=== PATIENT | male | born 1970 | race Caucasian/White ===

== ENCOUNTER → 2023-12-05 | Outpatient (CLI) | payer OTHER | END | disposition home or self-care (01) | LOC: RADMN 09:34 | PROVIDERS: ATTEND Family Medicine | DX: Z12.2 Encounter for screening for malignant neoplasm of respiratory organs (principal); R91.8 Other nonspecific abnormal finding of lung field; J98.4 Other disorders of lung; M41.84 Other forms of scoliosis, thoracic region; M47.814 Spondylosis without myelopathy or radiculopathy, thoracic region; Z87.891 Personal history of nicotine dependence | CPT/HCPCS: 71250 ==